=== PATIENT | female | born 1980 | race Caucasian/White ===

== ENCOUNTER 2019-12-10 13:08 | Emergency (ER) | payer OTHER ==
[~2019-12-10] VITALS: Ht 170.2 cm; Wt 83.9 kg
[~2019-12-10 13:08] MED LIST: BACTRIM DS TAB1 EACH PO; CIPROFLOXACIN500 M1 PO; INDOMETHACIN 5050 M1 PO; K-DUR 20 MEQ T20 MEQ PO; LAMICTAL XR300 MG; PHENERGAN 25 MG25 M1 PO; PYRIDIUM200 MG PO; TRAMADOL 50 MG50 MG PO; ULTRAM 50MG TAB50 MG PO
[2019-12-10] MEDS ORDERED: LO LOESTRIN FE1 EACH PO (13:31)
[2019-12-10] MEDS ORDERED: AMBIEN 10 MG TA10 MG PO (13:31)
[2019-12-10 13:34] LABS: ABSOLUTE BASOPHILS 0.1 thou/uL (0.0-0.2); ABSOLUTE EOSINOPHILS 0.2 thou/uL (0.0-0.7); ABSOLUTE MONOCYTES 0.5 thou/uL (0.0-1.2); ABSOLUTE NEUTROPHILS 3.4 thou/uL (1.6-8.1); BASOPHILS 0.9 %; EOSINOPHILS 2.8 %; HEMATOCRIT 38.5 % (37.0-47.0); HEMOGLOBIN 13.1 gm/dL (12.0-15.0); LYMPHOCYTES 32.6 %; MONOCYTES 7.8 %; MPV 8.1 fl. (7.2-11.1); NUCLEATED RBCS 0 /100WBC; PLATELET COUNT* 262 thou/uL (150-400); POLYS 55.9 %; RBC 4.23 mil/uL (4.20-5.00); RDW-CV 12.4 % (10.5-14.5); WBC 6.2 thou/uL (4.0-11.0)
[2019-12-10 13:40] LABS: CREATININE 0.8 mg/dL (0.6-1.3); POTASSIUM 3.6 mmol/L (3.5-5.1)
[2019-12-10 13:43] LABS: APTT 21.5 Seconds (25.0-31.3); PROTIME 10.3 Seconds (9.20-11.50)
[2019-12-10 13:52] LABS: ALBUMIN 4.2 g/dL (3.4-5.0); TOTAL BILIRUBIN 0.4 mg/dL (<0.1-1.0); TOTAL PROTEIN 7.9 g/dL (6.4-8.2)
[2019-12-10 14:20] VITALS: BP 138/78
--- NOTE | 2019-12-10 14:40 | EKG ---
[place] [address] ELECTROCARDIOGRAM REPORT Name: JUANA MCCALL Room: [facility]#: [id number] Admission: 12/10/19 Attend Phys: Discharge: 12/10/19 Date of : 82 Date of Service: 12/10/19 1338 Report #: [id number] THIS REPORT FOR: //name// [facility] ED Test Date: 2019-12-10 Test Time: 13:38:08 Pat Name: JUANA MCCALL Department: Room: Gender: [employer]: [place] : 1980 Requested By: Pato Potts Order Number: [id number] MD: Heriberto Giles Measurements Intervals [place] Rate: 67 P: 47 OR: 146 QRS: 73 QRSD: 86 T: 18 QT: 410 QTc: 433 Interpretive Statements Sinus rhythm No previous ECG available for comparison Electronically Signed On 12-10-2019 14:39:51 CDT by Heriberto Giles [email or web address] <ELECTRONICALLY SIGNED> By: Heriberto Giles MD, [facility] 12/10/19 1439 1338 1338 Heriberto Giles MD, FACC /EPI
== END 2019-12-10 14:20 | disposition home or self-care (01) ==
LOC: M.ERS 13:08
PROVIDERS: Family Medicine
DX: F41.9 Anxiety disorder, unspecified (principal)